=== PATIENT | male | born 1965 | race Hispanic/Latino ===

== ENCOUNTER 2017-07-06 18:23 | Emergency (ER) | payer OTHER ==
[~2017-07-06] VITALS: Ht 157.5 cm; Wt 81.2 kg
[~2017-07-06 18:23] MED LIST: OMEP20CA12 PO; SUCR1ORA5 PO
--- OUTSIDE RECORDS SUMMARY | 2017-07-06 18:30 | XMS REPORT | Continuity of Care Document ---
Author Author [facility] Organization [facility] Address Unknown Phone Unavailable Allergies Active Description Code Type Severity Reaction Onset Reported/Identified Relationship to Patient Clinical Status Yes No Known Drug Allergies [id number] Drug Allergy Unknown N/ A 10/21/2015 Medications Problems Date Dx Coded Attending Type Code Diagnosis Diagnosed By 10/21/2015 [facility] MCGINNIS, JUANITO Cunha Ot K29.70 GASTRITIS, UNSPECIFIED, WITHOUT BLEEDING 10/21/2015 [facility]INN[facility], JUANITO Cunha Ot K40.20 BI INGUINAL HERNIA, W/O OBST OR GANGRENE 10/21/2015 [facility], JUANITO Cunha Ot R10.32 LEFT LOWER QUADRANT PAIN 10/21/2015 JUANITO ARVIZU MD Ot R19.7 DIARRHEA, UNSPECIFIED Procedures Results Encounters ACCT No. Visit Date/Time Discharge Status Pt. Type Provider Facility Loc./Unit Complaint [id number] 10/21/2015 18:38:00 2015 23:00:00 DIS Emergency [facility] MCGINNIS, JUANITO Cunha [facility] ER
[2017-07-06] MEDS ORDERED: KETOROLAC 30 MG/ML VIAL IVP ONE (19:15)
[2017-07-06] MEDS ORDERED: ONDANSETRON 4 MG/2 ML (SDV) Z0FRAN IVP ONE (19:15)
[2017-07-06 19:22] LABS: BILIRUBIN,URINE NEGATIVE (NEGATIVE); KETONES,URINE NEGATIVE (NEGATIVE); LEUKOCYTE ESTERASE ,URINE NEGATIVE (NEGATIVE); NITRITE,URINE NEGATIVE (NEGATIVE); PH,URINE 6 (5-9); PROTEIN,URINE NEGATIVE (NEGATIVE); UROBILINOGEN,URINE NORMAL (NORMAL)
[2017-07-06 19:32] LABS: BASOPHILS # (AUTO) 0.1 10^3/uL (0.0-0.1); BASOPHILS % (AUTO) 1 % (0-10); EOSINOPHILS # (AUTO) 0.2 10^3/uL (0.0-0.3); EOSINOPHILS % (AUTO) 3 % (0-10); LYMPHOCYTES % (AUTO) 24 % (12-44); MEAN CORPUSCULAR HEMOGLOBIN 25 PG (25-34); MEAN CORPUSCULAR HGB CONC 34 G/DL (32-36); MEAN CORPUSCULAR VOLUME 73 FL (80-99); MONOCYTES # (AUTO) 0.7 X 10^3 (0.0-1.0); MONOCYTES % (AUTO) 9 % (0-12); NEUTROPHILS # (AUTO) 5.2 X 10^3 (1.8-7.8); NEUTROPHILS % (AUTO) 64 % (42-75); PLATELET COUNT 193 10^3/uL (130-400); RED CELL DISTRIBUTION WIDTH 14.6 % (10.0-14.5); WHITE BLOOD COUNT 8.2 10^3/uL (4.3-11.0)
[2017-07-06 19:50] LABS: ALANINE AMINOTRANSFERASE 27 U/L (0-55); ALBUMIN 3.9 GM/DL (3.2-4.5); ANION GAP 9 MMOL/L (5-14); ASPARTATE AMINO TRANSFERASE 24 U/L (5-34); BILIRUBIN,TOTAL 0.6 MG/DL (0.1-1.0); BLOOD UREA NITROGEN 19 MG/DL (7-18); BUN/CREATININE RATIO 23; CALCIUM 8.7 MG/DL (8.5-10.1); CARBON DIOXIDE 24 MMOL/L (21-32); CHLORIDE 103 MMOL/L (98-107); CREATININE SERUM 0.84 MG/DL (0.60-1.30); GFR ESTIMATED > 60; GLUCOSE 106 MG/DL (70-105); SODIUM 136 MMOL/L (135-145); TOTAL PROTEIN 7.2 GM/DL (6.4-8.2)
--- NOTE | 2017-07-06 20:01 | ED Abdominal Pain ---
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[employer]) Exam Limitations: Language Barrier (PT SPEAKS VERY MINIMAL [place]) History of Present Illness Time Seen By Provider: 18:53 Initial Comments PT ARRIVES VIA POV FROM HOME C/O RLQ/RIGHT GROIN PAIN SINCE MONDAY PAIN RADIATES TO RUQ PAIN IS WORSE WITH MOVEMENTS OR LIFTING C/O NAUSEA, NO VOMITING C/O MILD BURNING ON URINATION HAS HAD SUBJECTIVE FEVER NO HISTORY OF SIMILAR PCP: NONE Allergies and Home Medications Allergies Coded Allergies: No Known Drug Allergies (Unverified , 10/21/15) Home Medications Naproxen 500 Mg Tablet, 500 MG PO BID, #20 Prescribed by: ROGE MC on 07/06/172054 Tramadol HCl 50 Mg Tablet, 50 MG PO Q4H, #20 Prescribed by: ROGE MC on 07/06/172054 Review of Systems Constitutional: see HPI, fever (SUBJECTIVE) Respiratory: No Symptoms Reported Cardiovascular: No Symptoms Reported Gastrointestinal: See HPI, Abdominal Pain, Denies Constipated, Denies Diarrhea , Nausea, Denies Vomiting Genitourinary: See HPI, Burning, Denies Flank Pain, Denies Hematuria Musculoskeletal: no symptoms reported, No back pain Skin: no symptoms reported, No rash Psychiatric/Neurological: No Symptoms Reported Endocrine: No Symptoms Reported Hematologic/Lymphatic: No Symptoms Reported Past Jzvpimd-Vflngo-Yrdalk Hx Patient Social History Alcohol Use: Denies Use Recreational Drug Use: No Smoking Status: Never a Smoker Recent Foreign Travel: No Contact w/Someone Who Travel: No Recent Infectious Disease Expo: No Physical Abuse: No Sexual Abuse: No Surgeries History of Surgeries: No Respiratory History of Respiratory Disorde: No Cardiovascular History of Cardiac Disorders: No Neurological History of Neurological Disord: No Reproductive System Hx Reproductive Disorders: No Genitourinary History of Genitourinary Disor: No Gastrointestinal History of Gastrointestinal Di: Yes (STATES HISTORY OF "ULCER" BUT NO TESTS DONE AND NO MEDICATION FOR A LONG TIME) Gastrointestinal Disorders: Ulcer Musculoskeletal History of Musculoskeletal Dis: Yes (BILATERAL HIP PAIN ) Endocrine History of Endocrine Disorders: No HEENT History of HEENT Disorders: No Cancer History of Cancer: No Psychosocial History of Psychiatric Problem: No Suicide Risk Score: 0 Integumentary History of Skin or Integumenta: No Blood Transfusions History of Blood Disorders: No Physical Exam Vital Signs VS - Last 72 Hours, by Label 07/06/17 18:38 Temp 97.2 Pulse 82 Resp 18 B/P (MAP) 146/100 Pulse Ox 97 Capillary Refill : Less Than 3 Seconds General Appearance: WD/WN, no apparent distress HEENT: PERRL/EOMI, No scleral icterus (R), No scleral icterus (L) Neck: normal inspection Respiratory: normal breath sounds, no respiratory distress, no accessory muscle use Cardiovascular: normal peripheral pulses, regular rate, rhythm, no edema, no JVD, no murmur Gastrointestinal: normal bowel sounds, soft, no organomegaly, no pulsatile mass , No distended, No guarding, No rebound, tenderness (DIFFUSE RIGHT SIDED ABDOMINAL TENDERNESS WITH MOST TENDERNESS IN RIGHT INGUINAL AREA.), No hernia, No mass Extremities: normal inspection, no pedal edema, normal capillary refill Back: no CVA tenderness 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, no motor/sensory deficits, alert, normal mood/affect, oriented x 3 Skin: normal color, warm/dry, No rash Progress/Results/Core Measures Results/Orders Lab Results Laboratory Tests Test 07/06/17 19:15 07/06/17 19:25 Range/Units Urine Color YELLOW Urine Clarity CLEAR Urine pH 6 5-9 Urine Specific [place] 1.015 L 1.016-1.022 Urine Protein NEGATIVE NEGATIVE Urine Glucose (UA) NEGATIVE NEGATIVE Urine Ketones NEGATIVE NEGATIVE Urine Nitrite NEGATIVE NEGATIVE Urine Bilirubin NEGATIVE NEGATIVE Urine Urobilinogen NORMAL NORMAL MG/DL Urine Leukocyte Esterase NEGATIVE NEGATIVE Urine RBC (Auto) 1+ H NEGATIVE Urine RBC 2-5 H /HPF Urine WBC NONE /HPF Urine Crystals NONE /LPF Urine Bacteria NEGATIVE /HPF Urine Casts NONE /LPF Urine Mucus NEGATIVE /LPF Urine Culture Indicated NO White Blood Count 8.2 4.3-11.0 10^3/uL Red Blood Count 5.90 H 4.35-5.85 10^6/uL Hemoglobin 14.9 13.3-17.7 G/DL Hematocrit 43 40-54 % Mean Corpuscular Volume 73 L 80-99 FL Mean Corpuscular Hemoglobin 25 25-34 PG Mean Corpuscular Hemoglobin Concent 34 32-36 G/DL Red Cell Distribution Width 14.6 H 10.0-14.5 % Platelet Count 193 130-400 10^3/uL Mean Platelet Volume 11.0 H 7.4-10.4 FL Neutrophils (%) (Auto) 64 42-75 % Lymphocytes (%) (Auto) 24 12-44 % Monocytes (%) (Auto) 9 0-12 % Eosinophils (%) (Auto) 3 0-10 % Basophils (%) (Auto) 1 0-10 % Neutrophils # (Auto) 5.2 1.8-7.8 X 10^3 Lymphocytes # (Auto) 2.0 1.0-4.0 X 10^3 Monocytes # (Auto) 0.7 0.0-1.0 X 10^3 Eosinophils # (Auto) 0.2 0.0-0.3 10^3/uL Basophils # (Auto) 0.1 0.0-0.1 10^3/uL Sodium Level 136 135-145 MMOL/L Potassium Level 3.0 L 3.6-5.0 MMOL/L Chloride Level 103 98-107 MMOL/L Carbon Dioxide Level 24 21-32 MMOL/L Anion Gap 9 5-14 MMOL/L Blood Urea Nitrogen 19 H 7-18 MG/DL Creatinine 0.84 0.60-1.30 MG/DL Estimat Glomerular Filtration Rate > 60 BUN/Creatinine Ratio 23 Glucose Level 106 H 70-105 MG/DL Calcium Level 8.7 8.5-10.1 MG/DL Total Bilirubin 0.6 0.1-1.0 MG/DL Aspartate Amino Transf (AST/SGOT) 24 5-34 U/L Alanine Aminotransferase (ALT/SGPT) 27 0-55 U/L Alkaline Phosphatase 127 40-136 U/L Total Protein 7.2 6.4-8.2 GM/DL Albumin 3.9 3.2-4.5 GM/DL My Orders Orders - ROGE MC DO Saline Lock/Iv-Start (07/06/17 18:58) Cbc With Automated Diff (07/06/17 18:58) Comprehensive Metabolic Panel (07/06/17 18:58) Ua Culture If Indicated (07/06/17 18:58) Ketorolac Injection (Toradol Injection) (07/06/17 19:15) Ondansetron Injection (Zofran Injectio (07/06/17 19:15) Ct Abd/Pelvis Wo(Kidney Stone) (07/06/17 19:38) Acute Abd Series (07/06/17 19:38) Rx-Naproxen (Rx-Naprosyn) (07/06/17 20:52) Rx-Tramadol Hcl (Rx-Ultram) (07/06/17 20:52) Medications Given in ED Current Medications Medications Dose Ordered Sig/Benjie Route Start Time Stop Time Status Last Admin Dose Admin Ketorolac Tromethamine 30 mg ONCE ONCE IVP 07/06/17 19:15 07/06/17 19:16 DC 07/06/17 19:24 30 MG Ondansetron HCl 4 mg ONCE ONCE IVP 07/06/17 19:15 07/06/17 19:16 DC 07/06/17 19:24 4 MG Vital Signs/I&O Vital Sign - Last 12Hours 07/06/17 18:38 Temp 97.2 Pulse 82 Resp 18 B/P (MAP) 146/100 Pulse Ox 97 Blood Pressure Mean: 115 Diagnostic Imaging Comments ACUTE ABDOMEN XRAYS CT ABDOMEN/PELVIS Reviewed: Reviewed by Me Departure Impression Impression: Primary Impression: Bilateral inguinal hernia Disposition: HOME, SELF-CARE Condition: Stable Departure-Patient Inst. Referrals: HERBERT MCMAHON,LOCAL PHYSICIAN (PCP) Primary Care Physician Patient Instructions: Groin Hernia (DC) Add. Discharge Instructions: NO LIFTING OVER 5 LBS LOTS OF CLEAR LIQUIDS FOLLOW UP IN THE OFFICE WITH DR. MCMAHON ( SURGEON ) ON MondayJUL 10. CALL THE OFFICE TOMORROW MORNING TO MAKE APPOINTMENT FOR MONDAY All discharge instructions reviewed with patient and/or family. Voiced understanding. Scripts Tramadol HCl (Ultram) 50 Mg Tablet 50 MG PO Q4H, #20 TAB Prov: ROGE MC DO 07/06/17 Naproxen (Naproxen) 500 Mg Tablet 500 MG PO BID, #20 TAB Prov: ROGE MC DO 07/06/17 ROGE MC DO Jul 06, 2017 20:01
--- NOTE | 2017-07-06 20:13 | Diagnostic Imaging Report ---
Acute abdomen series. INDICATION: Abdominal pain. The CT abdomen/pelvis exam performed prior to this study failed to show any sign of an acute abnormality. FINDINGS: The accompanying erect PA chest shows heart size to be within normal limits. Lungs are clear. Supine and erect views of the abdomen obtained. There is some gas in both large and small bowel in a nonspecific fashion. There is no sign of a bowel obstruction. There is no mass or organomegaly appreciated. The osseous structures are intact. IMPRESSION: The bowel gas pattern is nonspecific. There is no acute abnormality identified. Dictated by: Dictated on workstation # [id number]
--- NOTE | 2017-07-06 20:13 | Diagnostic Imaging Report ---
EXAMINATION: CT abdomen and pelvis without contrast dated 07/06/2017. TECHNIQUE: Multiple contiguous axial images were obtained through the abdomen and pelvis without the use of intravenous contrast. INDICATION: Abdominal pain on both sides with several days of pain. No prior history of stones. COMPARISON: 10/21/2015. FINDINGS: The lung bases demonstrate scattered areas of likely atelectasis. The liver and spleen are unremarkable on this noncontrast examination. Gallbladder, adrenal glands, and pancreas are normal in appearance. No nephrolithiasis is seen on either side with no hydronephrosis appreciated. There are no ureteral stones. There is no ascites. No free air. The appendix is slightly prominent in size measuring just over 7 mm in thickness. However, there is no surrounding inflammation, and this is similar to prior imaging consistent with a normal size for this patient. There are fat-containing inguinal hernias, right larger than left. Mild diverticular disease is seen, but there is no evidence for acute diverticulitis. IMPRESSION: 1. No nephrolithiasis or hydronephrosis. Incidental findings as described above. 2. Bilateral fat-containing inguinal hernias, similar to previous imaging. Dictated by: Dictated on workstation # [id number]
[2017-07-06] MEDS ORDERED: RX-NAPROXEN (NAPROSYN) 250 MG TAB PPK#4 PO STA (20:52)
[2017-07-06] MEDS ORDERED: RX-TRAMADOL 50 MG (ULTRAM) TAB PPK#4 PO STA (20:52)
[2017-07-06] MEDS ORDERED: TRAM-42 PO (20:55)
[2017-07-06] MEDS ORDERED: NAPR500T3 PO (20:55)
[2017-07-06 21:08] VITALS: BP 146/100
== END 2017-07-06 21:08 | disposition home or self-care (01) ==
LOC: EDUNIT# 18:23 → ER 18:26
DX: K40.20 Bilateral inguinal hernia, without obstruction or gangrene, not specified as recurrent (principal); Z87.19 Personal history of other diseases of the digestive system
CPT/HCPCS: 36415; 74022; 74176; 80053; 81000; 85025; 96374; 96375; 99283